=== PATIENT | male | born 1940 | race Caucasian/White ===

== ENCOUNTER → 2016-10-03 | Outpatient (CLI) | payer MEDICARE, OTHER | LOC: RAD 11:04 | DX: M54.5 Low back pain (principal) ==

== ENCOUNTER → 2016-10-08 | Outpatient (CLI) | payer MEDICARE, OTHER | LOC: RAD 12:35 | DX: S22.019A Unspecified fracture of first thoracic vertebra, initial encounter for closed fracture (principal); S22.029A Unspecified fracture of second thoracic vertebra, initial encounter for closed fracture; M51.44 Schmorl's nodes, thoracic region; M51.26 Other intervertebral disc displacement, lumbar region ==

== ENCOUNTER → 2017-01-02 | Outpatient (CLI) | payer MEDICARE, OTHER | LOC: LAB 07:33 | DX: Z00.00 Encounter for general adult medical examination without abnormal findings (principal); I10 Essential (primary) hypertension; Z12.5 Encounter for screening for malignant neoplasm of prostate; E78.2 Mixed hyperlipidemia; R73.01 Impaired fasting glucose ==

== ENCOUNTER → 2017-01-04 | Outpatient (CLI) | payer MEDICARE, OTHER | LOC: LAB 12:44 | DX: Z00.00 Encounter for general adult medical examination without abnormal findings (principal) ==

== ENCOUNTER → 2017-10-11 | Outpatient (CLI) | payer MEDICARE, OTHER | LOC: CARDREHAB 09:38 → CARDLAB 13:43 | DX: R06.09 Other forms of dyspnea (principal); E78.2 Mixed hyperlipidemia; I10 Essential (primary) hypertension | CPT/HCPCS: A9500 ==

== ENCOUNTER → 2017-12-16 | Outpatient (CLI) | payer MEDICARE, OTHER | LOC: RAD 13:09 | DX: Z12.2 Encounter for screening for malignant neoplasm of respiratory organs (principal); Z87.891 Personal history of nicotine dependence; J45.20 Mild intermittent asthma, uncomplicated ==

== ENCOUNTER → 2018-01-10 | Outpatient (CLI) | payer MEDICARE, OTHER ==
[2018-01-10 08:25] LABS: EOS # 0.3 (0.04-0.40); HEMATOCRIT 45.9 % (42.0-52.0); HEMOGLOBIN 15.5 g/dL (13.5-18.0); LYMPH# 1.5 (1.50-4.00); MEAN CELL VOLUME 94 fl (78-100); MEAN CORPUSCULAR HEMOGLOBIN 32 pg (27-31); MEAN CORPUSCULAR HGB CONC 34 g/dL (33-37); MEAN PLATELET VOLUME 10.4 fl (7.4-10.4); MONO # 0.4 (0.20-0.80); NEU # 3.1 (1.40-6.50); PLATELET COUNT 177 K/mm3 (130-400); RED BLOOD COUNT 4.91 M/mm3 (4.20-5.60); RED CELL DISTRIBUTION WIDTH 13.4 % (11.5-14.5); WHITE BLOOD COUNT 5.3 K/mm3 (4.8-10.8)
[2018-01-10 08:29] LABS: EOS % 5.3 % (0.0-4.0)
[2018-01-10 08:44] LABS: ALBUMIN 4.2 g/dL (3.5-5.0); BUN/CREATININE RATIO 13.9 (6.0-26.0); CALCIUM 9.1 mg/dL (8.4-10.2); POTASSIUM 4.2 mmol/L (3.6-5.0); TOTAL PROTEIN 7.3 g/dL (6.3-8.2)
== END ==
LOC: LAB 07:55
PROVIDERS: Nurse Practitioner Family
DX: Z12.5 Encounter for screening for malignant neoplasm of prostate (principal); E78.2 Mixed hyperlipidemia; I10 Essential (primary) hypertension; R73.01 Impaired fasting glucose

== ENCOUNTER → 2018-10-03 | Outpatient (CLI) | payer MEDICARE, OTHER ==
[2018-10-03 16:39] LABS: CALCIUM 9.3 mg/dL (8.4-10.2)
== END ==
LOC: RAD 15:09
PROVIDERS: Family Medicine
DX: M19.072 Primary osteoarthritis, left ankle and foot (principal); M79.89 Other specified soft tissue disorders; M10.9 Gout, unspecified

== ENCOUNTER → 2019-06-11 | Day surgery (SDC) | payer MEDICARE, OTHER | LOC: MSO 08:00 | DX: K22.2 Esophageal obstruction (principal); K21.9 Gastro-esophageal reflux disease without esophagitis; I10 Essential (primary) hypertension; G47.33 Obstructive sleep apnea (adult) (pediatric); N18.9 Chronic kidney disease, unspecified; Z87.891 Personal history of nicotine dependence | CPT/HCPCS: 00731; C1769; J2704; J7120 ==

== ENCOUNTER → 2020-05-24 | Outpatient (CLI) | payer MEDICARE, OTHER ==
[2020-05-24 08:39] LABS: ALBUMIN 4.3 g/dL (3.4-4.8); POTASSIUM 4.1 mmol/L (3.5-5.1)
[2020-05-24 08:41] LABS: CALCIUM 9.1 mg/dL (8.3-10.5)
[2020-05-24 08:42] LABS: TOTAL PROTEIN 7.4 g/dL (6.2-8.1)
[2020-05-24 08:44] LABS: TOTAL BILIRUBIN 0.6 mg/dL (0.2-1.2)
== END ==
LOC: LAB 07:59
PROVIDERS: Family Medicine
DX: E78.5 Hyperlipidemia, unspecified (principal); I10 Essential (primary) hypertension

== ENCOUNTER → 2020-05-25 | Outpatient (CLI) | payer MEDICARE, OTHER | LOC: LAB 12:02 | DX: Z12.5 Encounter for screening for malignant neoplasm of prostate (principal); K21.9 Gastro-esophageal reflux disease without esophagitis; N40.0 Benign prostatic hyperplasia without lower urinary tract symptoms ==

== ENCOUNTER → 2020-11-18 | Outpatient (CLI) | payer MEDICARE, OTHER ==
[2020-11-18 08:17] LABS: POTASSIUM 4.1 mmol/L (3.5-5.1)
== END ==
LOC: LAB 07:45
PROVIDERS: Family Medicine
DX: I10 Essential (primary) hypertension (principal)

== ENCOUNTER → 2021-06-06 | Outpatient (CLI) | payer MEDICARE, OTHER ==
[2021-06-06 08:59] LABS: POTASSIUM 4.3 mmol/L (3.5-5.1)
[2021-06-06 09:00] LABS: CALCIUM 9.6 mg/dL (8.3-10.5)
[2021-06-06 09:01] LABS: TOTAL PROTEIN 7.3 g/dL (6.2-8.1)
[2021-06-06 09:03] LABS: TOTAL BILIRUBIN 0.5 mg/dL (0.2-1.2)
== END ==
LOC: LAB 07:48
PROVIDERS: Family Medicine
DX: N18.2 Chronic kidney disease, stage 2 (mild) (principal); E78.5 Hyperlipidemia, unspecified

== ENCOUNTER → 2021-06-16 | Outpatient (CLI) | payer MEDICARE, OTHER | LOC: LAB 08:59 | DX: R53.83 Other fatigue (principal) ==

== ENCOUNTER → 2021-08-24 | Outpatient (CLI) | payer MEDICARE, OTHER | LOC: LAB 12:18 | DX: N18.30 Chronic kidney disease, stage 3 unspecified (principal) ==

== ENCOUNTER → 2021-12-11 | Outpatient (CLI) | payer MEDICARE, OTHER ==
[2021-12-11 11:16] LABS: ALBUMIN 4.5 g/dL (3.4-4.8); POTASSIUM 4.2 mmol/L (3.5-5.1)
[2021-12-11 11:17] LABS: CALCIUM 9.9 mg/dL (8.3-10.5)
[2021-12-11 11:19] LABS: TOTAL PROTEIN 7.9 g/dL (6.2-8.1)
[2021-12-11 11:21] LABS: TOTAL BILIRUBIN 0.7 mg/dL (0.2-1.2)
== END ==
LOC: LAB 08:34
PROVIDERS: Family Medicine
DX: E78.5 Hyperlipidemia, unspecified (principal); I10 Essential (primary) hypertension

== ENCOUNTER → 2022-06-13 | Outpatient (CLI) | payer MEDICARE, OTHER ==
[2022-06-13 10:17] LABS: POTASSIUM 4.3 mmol/L (3.5-5.1)
[2022-06-13 10:18] LABS: CALCIUM 9.7 mg/dL (8.3-10.5)
== END ==
LOC: LAB 08:42
PROVIDERS: Family Medicine
DX: N18.30 Chronic kidney disease, stage 3 unspecified (principal)

== ENCOUNTER → 2022-06-15 | Outpatient (CLI) | payer MEDICARE, OTHER | LOC: LAB 11:00 | DX: Z00.00 Encounter for general adult medical examination without abnormal findings (principal); I12.9 Hypertensive chronic kidney disease with stage 1 through stage 4 chronic kidney disease, or unspecified chronic kidney disease; N18.30 Chronic kidney disease, stage 3 unspecified; N40.1 Benign prostatic hyperplasia with lower urinary tract symptoms; K21.9 Gastro-esophageal reflux disease without esophagitis; E78.5 Hyperlipidemia, unspecified; J45.909 Unspecified asthma, uncomplicated; M10.9 Gout, unspecified; E55.9 Vitamin D deficiency, unspecified; Z71.89 Other specified counseling ==

== ENCOUNTER → 2022-11-29 | Outpatient (CLI) | payer MEDICARE, OTHER | LOC: LAB 12:03 | DX: R05.9 Cough, unspecified (principal); Z20.822 Contact with and (suspected) exposure to COVID-19 ==

== ENCOUNTER → 2023-12-30 | Outpatient (CLI) | payer MEDICARE, OTHER ==
[2024-02-18 13:40] LABS: CALCIUM 9.6 mg/dL (8.3-10.5)
== END ==
LOC: LAB 12:30
PROVIDERS: Family Medicine
DX: I10 Essential (primary) hypertension (principal); E78.2 Mixed hyperlipidemia

== ENCOUNTER → 2024-07-15 | Outpatient (CLI) | payer MEDICARE, OTHER ==
[2024-07-15 11:38] LABS: CALCIUM 9.8 mg/dL (8.3-10.5)
== END ==
LOC: LAB 11:13
PROVIDERS: Family Medicine
DX: I10 Essential (primary) hypertension (principal)